=== PATIENT | female | born 1945 | race Caucasian/White ===

== ENCOUNTER 2017-04-12 01:37 | Inpatient (IN) ==
[2017-04-06 09:15] LABS: MANUAL DIFF NEEDED? NO
--- NOTE | 2017-04-06 09:31 | EKG Report ---
Test Performed on : 04/06/2017 08:44:14 AM Test Reason : PAT Blood Pressure : / mmHG Vent. Rate : 054 BPM Atrial Rate : 054 BPM P-R Int : 188 ms QRS Dur : 090 ms QT Int : 476 ms P-R-T Axes : 024 -01 040 degrees QTc Int : 451 ms Sinus bradycardia. Otherwise normal ECG No previous ECGs available Confirmed by rIma CARBONE, Shon Woodard ([id number]) on 04/06/2017 10:09:16 AM
[2017-04-06 10:21] LABS: BASO% 0.5 % (0.0-0.8); EOS# 0.13 X1000 (0.0-0.7); EOS% 2.2 % (0.0-10.0); HEMATOCRIT 40.9 % (37.0-47.0); HEMOGLOBIN 13.3 g/dL (12.0-16.0); LYMPH# 2.23 X1000 (1.2-3.4); MCH 28.8 PG (27-31); MCHC 32.5 g/dL (33-37); MCV 88.5 FL (81-99); MONO# 0.29 X1000 (0.11-0.59); MONO% 4.8 % (1.7-9.3); MPV 9.8 FL (7.4-10.4); NEUT% 55.5 % (42.2-75.2); PLT 233 X1000 (130-400); RBC 4.62 XMIL (4.2-5.4)
[2017-04-06 10:42] LABS: AGAP 9; BUN 20 mg/dL (8-22); CALCIUM 9.1 mg/dL (8.8-10.2); CHLORIDE 101 mmol/L (98-107); COSMO 283; POTASSIUM 4.1 mmol/L (3.5-5.1); SODIUM 141 mmol/L (136-145); TCO2 31 mmol/L (25-35)
[2017-04-12] MEDS ORDERED: REGLAN ONE (10:29)
[2017-04-12] MEDS ORDERED: KEFZOL 1 GM/D5W 1 GM/50 ML IVPB ONE ×2 (10:29→14:22)
[2017-04-12] MEDS ORDERED: LR 1,000 ML ONE ×2 (10:29→16:12)
[2017-04-12] MEDS ORDERED: PEPCID ONE (10:29)
[2017-04-12] MEDS ORDERED: XYLOCAINE-MPF 1% ONE (10:40)
[2017-04-12] MEDS ORDERED: VERSED ONE ×2 (11:16→12:08)
[2017-04-12] MEDS ORDERED: ROBINUL ONE (12:04)
[2017-04-12] MEDS ORDERED: XYLOCAINE-MPF 2% ONE ×2 (12:04→13:45)
[2017-04-12] MEDS ORDERED: STERILE WATER INJ. ONE (12:07)
[2017-04-12] MEDS ORDERED: NORCURON ONE (12:07)
[2017-04-12] MEDS ORDERED: QUELICIN (DOSE) ONE (12:07)
[2017-04-12] MEDS ORDERED: FENTANYL ONE (12:08)
[2017-04-12] MEDS ORDERED: DIPRIVAN 1% ONE ×2 (12:08→13:44)
[2017-04-12] MEDS ORDERED: MARCAINE 0.25% PF ONE (13:50)
[2017-04-12] MEDS ORDERED: SODIUM CHLORIDE 0.9% ONE (13:51)
[2017-04-12] MEDS ORDERED: D10W 500 ML ONE (13:51)
[2017-04-12] MEDS ORDERED: LASIX ONE (14:44)
[2017-04-12] MEDS ORDERED: DECADRON ONE (14:44)
[2017-04-12] MEDS ORDERED: ZOFRAN ONE (14:44)
[2017-04-12] MEDS ORDERED: TORADOL ONE (14:45)
[2017-04-12] MEDS: MORPHINE ONE ×2 (15:44→15:50)
[2017-04-12] MEDS ORDERED: NORCO-10 ONE (16:12)
[2017-04-12] MEDS: LR 1,000 ML IV SCH (17:48)
[2017-04-12] MEDS: PERIDEX MT SCH (20:08)
[2017-04-12] MEDS: KLONOPIN PO SCH (20:08)
[2017-04-12] MEDS: TORADOL IV SCH (20:09)
[2017-04-12] MEDS ORDERED: AMBIEN PO SCH (21:00)
[2017-04-12] MEDS ORDERED: CELEXA PO SCH (21:00)
[2017-04-12] MEDS: NORCO-10 PO PRN (22:09)
[2017-04-13] MEDS: NORCO-10 PO PRN ×3 (02:07→10:13)
[2017-04-13] MEDS: TORADOL IV SCH ×2 (02:07→08:03)
[2017-04-13] MEDS: LR 1,000 ML IV SCH (06:04)
[2017-04-13 07:32] VITALS: BP 122/52
[2017-04-13] MEDS: PERIDEX MT SCH (08:03)
[2017-04-13] MEDS: KLONOPIN PO SCH (08:03)
[2017-04-13] MEDS ORDERED: HYDROCHLOROTHIAZIDE PO SCH (09:00)
[2017-04-13] MEDS ORDERED: COLACE PO SCH (09:00)
[2017-04-13] MEDS ORDERED: UROGESIC-BLUE PO SCH (09:00)
== END 2017-04-13 10:36 | disposition home or self-care (01) ==
LOC: SURHOLD 01:37 → 4N 15:27
PROVIDERS: ADMIT Obstetrics & Gynecology; ATTEND Obstetrics & Gynecology